=== PATIENT | female | born 2000 | race Caucasian/White ===

== ENCOUNTER 2020-07-09 18:29 | Emergency (ER) | payer OTHER ==
[2020-07-09 20:57] LABS: HEMOGLOBIN 16.3 gm/dl (12.3-15.3); RED BLOOD COUNT 5.49 M/UL (4.00-5.10); WHITE BLOOD COUNT 9.6 K/UL (4.5-11.0)
[2020-07-09 21:49] LABS: BUN/CREATININE RATIO 16 (0-10)
[2020-07-09] MEDS ORDERED: IBUPROFEN800 MG PO (22:00)
== END 2020-07-09 22:25 | disposition home or self-care (01) ==
LOC: ER1 18:29
PROVIDERS: Preventive Medicine Occupational Medicine
DX: R10.30 Lower abdominal pain, unspecified (principal); R11.2 Nausea with vomiting, unspecified
CPT/HCPCS: 80053; 80307; 81001; 83690; 84703; 85025; 86140; 87086; 96374; 96375; 99284; C9113; J1885; J2405; J7030

== ENCOUNTER 2020-07-12 10:25 | Emergency (ER) | payer OTHER ==
[~2020-07-12 10:25] MED LIST: IBUPROFEN800 MG PO
[2020-07-12 11:49] LABS: HEMOGLOBIN 13.4 gm/dl (12.3-15.3); RED BLOOD COUNT 4.56 M/UL (4.00-5.10); WHITE BLOOD COUNT 6.8 K/UL (4.5-11.0)
[2020-07-12 12:24] LABS: BUN/CREATININE RATIO 18 (0-10)
== END 2020-07-12 13:28 | disposition home or self-care (01) ==
LOC: ER1 10:25
PROVIDERS: Physician Assistant
DX: N83.201 Unspecified ovarian cyst, right side (principal); R11.2 Nausea with vomiting, unspecified
CPT/HCPCS: 80053; 81001; 84703; 85025; 96374; 96375; 99284; J1885; J2405; Q9967